=== PATIENT | male | born 1975 | race Caucasian/White ===

== ENCOUNTER 2022-06-20 12:32 | Day surgery (SDC) | payer OTHER ==
[~2022-06-20] VITALS: Ht 182.9 cm; Wt 104.5 kg
[~2022-06-20 12:32] MED LIST: LISI2.5T9 PO; ROSU10TA6 PO
[2022-06-20 15:15] LABS: BASO % 0.2 % (0.0-1.0); EOS # 0.1 10^3/uL (0.0-0.5); HEMATOCRIT 45.9 % (42.0-52.0); HEMOGLOBIN 15.5 g/dl (13.5-17.5); LYMPH # 1.8 10^3/uL (1.5-5.0); LYMPH % 21.3 % (24.0-44.0); MEAN CORPUSCULAR HEMOGLOBIN 28.2 pg (27.0-33.0); MEAN CORPUSCULAR HGB CONC 33.8 g/dl (32.0-36.5); MEAN CORPUSCULAR VOLUME 83.6 fl (80.0-96.0); MONO # 0.8 10^3/uL (0.0-0.8); MONO % 9.1 % (2.0-8.0); NEUTROPHILS # 5.8 10^3/uL (1.5-8.5); NEUTROPHILS % 68.3 % (36.0-66.0); PLATELET COUNT, AUTOMATED 190 10^3/uL (150-450); RED BLOOD COUNT 5.49 10^6/uL (4.30-6.10); WHITE BLOOD COUNT 8.4 10^3/uL (4.0-10.0)
[2022-06-20 15:41] LABS: LIPASE 29 U/L (12-53)
[2022-06-20 15:44] LABS: ALBUMIN 4.3 G/DL (3.2-5.2); ALKALINE PHOSPHATASE 81 U/L (46-116); ALT/SGPT 46 U/L (7.0-40); AST/SGOT 27 U/L (<34); BILIRUBIN,DIRECT 0.4 MG/DL (<0.4); BILIRUBIN,TOTAL 1.4 MG/DL (0.3-1.2); BLOOD UREA NITROGEN 11 MG/DL (9-23); CALCIUM LEVEL 9.2 MG/DL (8.5-10.1); CARBON DIOXIDE LEVEL 30 MMOL/L (20-31); CHLORIDE LEVEL 102 MMOL/L (98-107); CREATININE FOR GFR 1.03 MG/DL (0.70-1.30); GLOMERULAR FILTRATION RATE > 60.0 (>60); GLUCOSE, FASTING 98 MG/DL (60-100); POTASSIUM SERUM 4.7 MMOL/L (3.5-5.1); SODIUM LEVEL 139 MMOL/L (136-145); TOTAL PROTEIN 7.3 G/DL (5.7-8.2)
[2022-06-20] MEDS ORDERED: KETOROLAC 30 MG/ML 1ML VIAL IV ONE (16:35)
[2022-06-20] MEDS ORDERED: NS 1,000 ML IV ONE (16:35)
[2022-06-20] MEDS ORDERED: PANTOPRAZOLE 40MG VIAL IV ONE (16:35)
[2022-06-20] MEDS ORDERED: ISOVUE-370 76% 100ML VIAL As Ordered ONE (16:41)
[2022-06-20] MEDS ORDERED: PIPERACILLIN/TAZOBACTAM SOD 4.5 GM in D5W MINI-BAG PLUS 50 ML IV ONE (17:20)
[2022-06-20 18:21] LABS: RSV AMPLIFICATION NEGATIVE (NEGATIVE)
[2022-06-20] MEDS ORDERED: KETOROLAC 30 MG/ML 1ML VIAL IV PRN (19:30)
[2022-06-20] MEDS ORDERED: ACETAMINOPHEN TAB 650MG DOSE (2X325MG) PO PRN (19:30)
[2022-06-20] MEDS ORDERED: NORCO, ANEXSIA 5/325MG TABLET (HYDROcodone/ACETAMINOPHEN) PO PRN ×2 (19:30)
[2022-06-20] MEDS ORDERED: ONDANSETRON 4MG 2ML VIAL IV PRN (19:30)
[2022-06-20] MEDS: NS 1,000 ML IV SCH (20:00)
[2022-06-20] MEDS ORDERED: SENOKOT S TAB PO SCH (21:00)
[2022-06-20] MEDS ORDERED: TERB250T91 PO (23:24)
[2022-06-20] MEDS ORDERED: ROSU10TA6 PO (23:24)
[2022-06-20] MEDS ORDERED: LISI2.5T9 PO (23:24)
[2022-06-20] MEDS ORDERED: HOME MED LIST COMPLETE! XX SCH (23:25)
[2022-06-21] MEDS ORDERED: BUPIVACAINE HCL 0.25% 30ML VIAL As Ordered ONE (02:53)
[2022-06-21] MEDS: NS 1,000 ML IV SCH (03:30)
[2022-06-21] MEDS ORDERED: ROCURONIUM BROMIDE 50MG/5ML VIAL As Ordered ONE (05:34)
[2022-06-21] MEDS ORDERED: MIDAZOLAM INJ 2MG/2ML VIAL As Ordered ONE (05:34)
[2022-06-21] MEDS ORDERED: propofoL 200 MG/20 ML VIAL As Ordered ONE (05:34)
[2022-06-21] MEDS ORDERED: KETOROLAC 60MG 2ML VIAL As Ordered ONE (05:34)
[2022-06-21] MEDS ORDERED: SUGAMMADEX SODIUM 500 MG/5 ML VIAL (BRIDION) As Ordered ONE (05:34)
[2022-06-21] MEDS ORDERED: fentaNYL 100 MCG/2 ML INJECTION As Ordered ONE (05:34)
[2022-06-21] MEDS ORDERED: ONDANSETRON 4MG 2ML VIAL As Ordered ONE (05:34)
[2022-06-21] MEDS ORDERED: LIDOCAINE 2% 100MG/5ML SDV (FOR ANES.) As Ordered ONE (05:34)
[2022-06-21] MEDS ORDERED: ACETAMINOPHEN 1000MG 100ML IV BAG As Ordered ONE (05:35)
[2022-06-21] MEDS ORDERED: oxyCODONE 5MG TAB PO PRN (06:00)
[2022-06-21] MEDS ORDERED: MEPERIDINE INJ 25 MG/ML VIAL IV PRN (06:00)
[2022-06-21] MEDS ORDERED: fentaNYL 100 MCG/2 ML INJECTION IV PRN (06:00)
[2022-06-21] MEDS ORDERED: LR 1,000 ML IV SCH (06:00)
[2022-06-21] MEDS ORDERED: METOCLOPRAMIDE INJ 10MG/2ML VIAL IV PRN (06:00)
[2022-06-21] MEDS ORDERED: HYDROMORPHONE HCL 0.5 MG/ 0.5 ML SYRINGE IV PRN (06:00)
[2022-06-21] MEDS ORDERED: ONDANSETRON 4MG 2ML VIAL IV PRN (06:00)
[2022-06-21] MEDS ORDERED: diphenhydrAMINE 50MG/ML VIAL IV PRN (06:00)
[2022-06-21] MEDS ORDERED: ZOSYN 3.375GM VIAL As Ordered ONE (06:28)
[2022-06-21] MEDS ORDERED: HYDROmorphone HCL 2MG/ML 1ML VIAL As Ordered ONE (06:30)
[2022-06-21] MEDS: PIPERACILLIN/TAZOBACTAM SOD 3.375 GM in D5W MINI-BAG PLUS 50 ML IV SCH ×3 (06:37)
[2022-06-21] MEDS ORDERED: HYDR-3715 PO (07:51)
[2022-06-21] MEDS ORDERED: METOCLOPRAMIDE INJ 10MG/2ML VIAL IV ONE (08:30)
[2022-06-21 09:46] VITALS: BP 154/89
== END 2022-06-21 09:46 | disposition home or self-care (01) ==
LOC: M ED 12:32 → M SDC 19:34 → ENRESERV 06-21 00:02 → M SDC 06-21 09:46
PROVIDERS: ATTEND Surgery
DX: K35.890 Other acute appendicitis without perforation or gangrene (principal); I10 Essential (primary) hypertension; E78.5 Hyperlipidemia, unspecified; Z79.899 Other long term (current) drug therapy
CPT/HCPCS: 44970; 74177; 76705; 80048; 80076; 83605; 83690; 85025; 87040; 87631; 88304; 96365; 96366; 96375; 99284; C9113; J1100; J2405; J2543

== ENCOUNTER → 2022-07-01 | Outpatient (CLI) | payer OTHER, SELFPAY ==
[~2022-07-01] MED LIST changes: +HYDR-3715 PO; +TERB250T91 PO
== END ==
LOC: M LABSMTC 09:50
PROVIDERS: ATTEND Anesthesiology
DX: Z01.812 Encounter for preprocedural laboratory examination (principal); Z11.52 Encounter for screening for COVID-19

== ENCOUNTER 2022-07-04 07:45 | Day surgery (SDC) | payer OTHER ==
[~2022-07-04] VITALS: Ht 182.9 cm; Wt 111.6 kg
[~2022-07-04 07:45] MED LIST changes: +BUPIVACAINE HCL 0.5% 30ML VIAL As Ordered ONE; +LIDOCAINE 1% MDV 20ML VIAL As Ordered ONE; +ceFAZolin SOD 2 GM in IV 1 EA IV ONE
[2022-07-04] MEDS ORDERED: LR 1,000 ML IV SCH (08:05)
[2022-07-04] MEDS ORDERED: fentaNYL 100 MCG/2 ML INJECTION As Ordered ONE ×2 (08:41→10:04)
[2022-07-04] MEDS ORDERED: LIDOCAINE 2% 100MG/5ML SDV (FOR ANES.) As Ordered ONE (08:41)
[2022-07-04] MEDS ORDERED: ONDANSETRON 4MG 2ML VIAL As Ordered ONE (08:41)
[2022-07-04] MEDS ORDERED: propofoL 200 MG/20 ML VIAL As Ordered ONE ×2 (08:41→10:09)
[2022-07-04] MEDS ORDERED: NALOXONE INJ 0.4MG/1ML VIAL As Ordered ONE (08:41)
[2022-07-04] MEDS ORDERED: MIDAZOLAM INJ 2MG/2ML VIAL As Ordered ONE (08:42)
[2022-07-04] MEDS ORDERED: HYDR-4571 PO (10:22)
[2022-07-04 11:35] VITALS: BP 163/88
== END 2022-07-04 11:35 | disposition home or self-care (01) ==
LOC: M SDC 07:45
PROVIDERS: ATTEND Podiatrist Foot & Ankle Surgery
DX: M89.8X7 Other specified disorders of bone, ankle and foot (principal); M79.672 Pain in left foot; B35.1 Tinea unguium; I10 Essential (primary) hypertension; E78.5 Hyperlipidemia, unspecified; Z79.899 Other long term (current) drug therapy
CPT/HCPCS: 28122; 88300; 97116; J0690; J1100; J2250; J2310; J2405; J3010; S0020

== ENCOUNTER → 2024-01-14 | Outpatient (CLI) | payer OTHER ==
[~2024-01-14] MED LIST changes: -BUPIVACAINE HCL 0.5% 30ML VIAL As Ordered ONE; +HYDR-4571 PO; -LIDOCAINE 1% MDV 20ML VIAL As Ordered ONE; -ROSU10TA6 PO; +ROSU10TA61 PO; -ceFAZolin SOD 2 GM in IV 1 EA IV ONE
== END ==
LOC: M SLEEP 15:40
PROVIDERS: ATTEND Physician Assistant
DX: R06.83 Snoring (principal)

== ENCOUNTER 2024-03-10 11:39 | Day surgery (SDC) | payer OTHER ==
[~2024-03-10] VITALS: Ht 182.9 cm; Wt 105.9 kg
[~2024-03-10 11:39] MED LIST changes: +NS 250 ML IV ONE
[2024-03-10] MEDS ORDERED: propofoL 200 MG/20 ML VIAL As Ordered ONE (13:18)
[2024-03-10] MEDS ORDERED: GLYCOPYRROLATE INJ 0.2 MG/ML 2 ML VIAL As Ordered ONE (13:18)
[2024-03-10 14:41] VITALS: TEMP 97.3
[2024-03-10 14:52] VITALS: BP 127/82; O2SAT 94
== END 2024-03-10 14:54 | disposition home or self-care (01) ==
LOC: M OPP 11:39
PROVIDERS: ATTEND Internal Medicine Gastroenterology
DX: Z12.11 Encounter for screening for malignant neoplasm of colon (principal); Z83.719 Family history of colon polyps, unspecified; D12.2 Benign neoplasm of ascending colon; K57.30 Diverticulosis of large intestine without perforation or abscess without bleeding; K64.8 Other hemorrhoids; K44.9 Diaphragmatic hernia without obstruction or gangrene; I10 Essential (primary) hypertension; E78.5 Hyperlipidemia, unspecified; K21.9 Gastro-esophageal reflux disease without esophagitis; Z79.899 Other long term (current) drug therapy
CPT/HCPCS: 43235; 45385; 88305; J1596